=== PATIENT | female | born 1955 | race Caucasian/White ===

== ENCOUNTER 2017-12-09 20:37 | Emergency (ER) | payer OTHER ==
[~2017-12-09] VITALS: Ht 162.6 cm; Wt 95.5 kg
[~2017-12-09 20:37] MED LIST: HUMALOG100 U/ML SC; LANTUS100 U/ML; LOTREL; METFORMIN500 MG PO; NORCO 325 MG-51 TAB PO; PHENERGAN 25 TA25 MG PO; TIAZAC120 MG PO; [UNRECOGNIZED DRUG - OTHER] PO
[2017-12-09 20:39] VITALS: TEMP 99
[2017-12-09] MEDS ORDERED: PREDNISONE20 MG PO (22:19)
[2017-12-09 22:30] VITALS: BP 134/78; PULSE 70
== END 2017-12-09 22:33 | disposition home or self-care (01) ==
LOC: COL.ER 20:37
DX: T78.3XXA Angioneurotic edema, initial encounter (principal); E11.9 Type 2 diabetes mellitus without complications; I10 Essential (primary) hypertension; Z79.4 Long term (current) use of insulin
CPT/HCPCS: J1100; J1200

== ENCOUNTER 2019-08-13 18:37 | Inpatient (IN) | payer MEDICARE, OTHER ==
[~2019-08-13] VITALS: Ht 157.5 cm; Wt 98.9 kg
[~2019-08-13 18:37] MED LIST changes: +AMILORIDE/HCTZ1 TAB PO; +GLUCOPHAGE500 MG/TAB PO; -METFORMIN500 MG PO; +PREDNISONE20 MG PO; -[UNRECOGNIZED DRUG - OTHER] PO
[2019-08-13 20:02] LABS: BASO # 0.1 (0.0-0.2); BASO % 0.2 % (0.0-2.0); EOS # 0.1 (0.0-0.7); EOS % 0.3 % (0-4.0); GRAN # 17.5 (1.4-6.5); GRAN % 86.7 % (42.2-75.2); HEMOGLOBIN 12.3 g/dl (12.5-16.0); LYMPH # 1.6 (1.2-3.4); LYMPH % 7.8 % (20.0-51.0); MEAN CELL VOLUME 89 fl (80.0-100.0); MEAN CORPUSCULAR HEMOGLOBIN 30 pg (27.0-31.0); MEAN CORPUSCULAR HGB CONC 33 g/dl (33.0-37.0); MEAN PLATELET VOLUME 10.7 fl (7.4-10.4); MONO # 0.9 (0.1-0.6); MONO % 4.4 % (1.7-9.3); PLATELET COUNT 325 K/mm3 (130-400); RED BLOOD COUNT 4.14 M/mm3 (4.10-5.30); REDCELL DISTRIBUTION WIDTH-CV 15.9 % (11.5-14.5)
[2019-08-13 20:16] LABS: ALBUMIN 4.7 gm/dL (3.5-5.0); BILIRUBIN,TOTAL 3.6 mg/dL (0.0-1.0); C-REACTIVE PROTEIN 0.7 mg/dL (0.0-0.9); CALCIUM 9.6 mg/dL (8.4-10.2); CREATININE, serum 1.18 (0.52-1.25); POTASSIUM 3.7 mmol/L (3.4-5.0); TOTAL PROTEIN 8.2 gm/dL (6.4-8.2)
[2019-08-13 20:19] LABS: HEMATOCRIT 36.8 % (37.0-47.0)
[2019-08-13 22:56] LABS: COLLECTION METHOD CLEAN CATCH
[2019-08-13 23:03] LABS: MUCOUS Present /lpf; PH 5 (5-8); SQUAMOUS EPITHELIAL 0-2 /hpf; URINE APPEARANCE Clear; URINE BACTERIA None Seen /hpf; URINE BILIRUBIN Negative (NEGATIVE); URINE BLOOD 1+ (NEGATIVE); URINE COLOR Yellow; URINE GLUCOSE Negative (NEGATIVE); URINE KETONE Negative (NEGATIVE); URINE LEUKOCYTE ESTERASE Negative (NEGATIVE); URINE NITRATE Negative (NEGATIVE); URINE PROTEIN(semi-quant) Negative (NEGATIVE); URINE RBC 0-2 /hpf; URINE UROBILINOGEN Negative (NEGATIVE)
--- NOTE | 2019-08-13 23:45 | NUR ---
PT ADMITTED TO ROOM 347 FROM ER PER W/C. A&O X4. DOZING AT TIMES. NO RESP DISTRESS. REVIEWED PLAN OF CARE.
[2019-08-13 23:50] VITALS: BP 121/64; PULSE 69; TEMP 98.5
[2019-08-14] MEDS ORDERED: LASIX 20MG TABL20 MG PO (00:25)
[2019-08-14] MEDS ORDERED: CRESTOR5 MG PO (00:26)
[2019-08-14] MEDS ORDERED: LOTREL 5/20 CAP1 CAP PO (00:29)
[2019-08-14 04:00] VITALS: BP 134/66; PULSE 73; TEMP 98.3
--- NOTE | 2019-08-14 06:07 | NUR ---
SEE MAR FOR PAIN & NAUSEA MED GIVEN. PT REPORTS HAS MILD HEADACHE WITH MS. PT REPORTS NAUSEA WITH ACTIVITY.
--- NOTE | 2019-08-14 07:00 | NUR ---
Report received from JIMMIE Meek. PT in bed resting, denies needs, will continue to monitor.
[2019-08-14 07:52] VITALS: BP 143/82; PULSE 148; TEMP 98.4
[2019-08-14 07:55] LABS: HEMATOCRIT 32.2 % (37.0-47.0); HEMOGLOBIN 10.5 g/dl (12.5-16.0); MEAN CELL VOLUME 90 fl (80.0-100.0); MEAN CORPUSCULAR HEMOGLOBIN 29 pg (27.0-31.0); MEAN CORPUSCULAR HGB CONC 33 g/dl (33.0-37.0); MEAN PLATELET VOLUME 10.5 fl (7.4-10.4); PLATELET COUNT 205 K/mm3 (130-400); RED BLOOD COUNT 3.57 M/mm3 (4.10-5.30); REDCELL DISTRIBUTION WIDTH-CV 15.9 % (11.5-14.5)
[2019-08-14] MEDS ORDERED: GLUCOPHAGE500 MG/TAB PO (07:58)
[2019-08-14 08:04] VITALS: BP 131/64; PULSE 78
[2019-08-14 08:06] LABS: ALBUMIN 3.9 gm/dL (3.5-5.0); BILIRUBIN,TOTAL 0.8 mg/dL (0.0-1.0); CALCIUM 8.7 mg/dL (8.4-10.2); CREATININE, serum 0.9 (0.52-1.25); POTASSIUM 3.8 mmol/L (3.4-5.0); TOTAL PROTEIN 6.8 gm/dL (6.4-8.2)
--- NOTE | 2019-08-14 08:53 | NUR ---
Assessment charted. Pt in bed resting, called earlier for EKG after DATA INPUT CLERK found heart rate to be in 140's, order received from Kandy for EKG but tachycardia resolved within a few minutes, per patient this is a chronic issue for her. Pt denies needs, pain is not bad at rest but when moving is 7/10, discussed pain managment with Kandy and new pain medication received. Will continue monitor.
[2019-08-14] MEDS ORDERED: OMEGA-3 1000 MG1 CAP PO (09:07)
--- NOTE | 2019-08-14 09:43 | NUR ---
Skin Tanner met with patient to discuss discharge planning. Patient lives in [place] with her , Crispin (ph#[phone]) and plans to return home upon discharge. Patient sees Dr. Hi Gomez for primary care and has no issues obtaining medications from the [facility] pharmacy on [address]. Patient reports independence with ADL's and has no additional concerns at this time. Patient does not have Advance Directives in place but was interested in obtaining forms for DPOA-HC. SW provided.
[2019-08-14 12:05] VITALS: BP 136/63; PULSE 77; TEMP 98.5
--- NOTE | 2019-08-14 13:41 | NUR ---
Pt is in room with son. No complaints at this time. Call light is within reach. Reported off to Primary RN Yariel.
[2019-08-14] MEDS ORDERED: HUMALOG100 U/ML SQ (14:17)
[2019-08-14] MEDS ORDERED: LANTUS100 U/ML SQ (14:18)
[2019-08-14 16:15] VITALS: BP 137/63; PULSE 80; TEMP 98.6
--- NOTE | 2019-08-14 18:38 | NUR ---
Pt family came to visit. pt ambulates to bathroom on her own.pt was up to shower. INT in left hand wrapped up with bag and iv fluid NS@100 stopped and capped off for pt to shower. pain level 4.5/10 and is moving down pt says. reprted off to JIMMIE Browne.
--- NOTE | 2019-08-14 18:45 | NUR ---
Report received from JIMMIE Browne. PT in bed resting after taking a shower. Doing well, denies needs, will continue to monitor.
--- NOTE | 2019-08-14 19:20 | NUR ---
REPORT GIVEN TO JIMMIE TIM.
[2019-08-14 19:24] VITALS: BP 138/55; PULSE 79; TEMP 99.5
--- NOTE | 2019-08-14 21:00 | NUR ---
Assessment charted. PT resting in bed, sleepy, spouse at bedside. Doing well, IVF to LFA. Anticipating am labs to determine plan of care. Denies needs, will continue to monitor.
[2019-08-15] VITALS: BP 147/74; PULSE 86; TEMP 98.1
[2019-08-15 03:55] VITALS: BP 98/70; PULSE 73; TEMP 99.1
--- NOTE | 2019-08-15 04:51 | NUR ---
PT has done well overnight, rested often, no PRN pain meds provided, will give bedside shift report to nightshift nurse who will resume care.
[2019-08-15 07:36] LABS: MEAN CELL VOLUME 91 fl (80.0-100.0); MEAN CORPUSCULAR HGB CONC 32 g/dl (33.0-37.0); MEAN PLATELET VOLUME 10.5 fl (7.4-10.4); PLATELET COUNT 159 K/mm3 (130-400); RED BLOOD COUNT 3.29 M/mm3 (4.10-5.30); REDCELL DISTRIBUTION WIDTH-CV 15.4 % (11.5-14.5)
[2019-08-15 07:47] VITALS: BP 156/61; PULSE 80; TEMP 98.6
[2019-08-15 07:47] LABS: ALBUMIN 3.5 gm/dL (3.5-5.0); BILIRUBIN,TOTAL 0.6 mg/dL (0.0-1.0); CALCIUM 8.6 mg/dL (8.4-10.2); CREATININE, serum 0.69 (0.52-1.25); POTASSIUM 3.7 mmol/L (3.4-5.0); TOTAL PROTEIN 6.3 gm/dL (6.4-8.2)
[2019-08-15 07:48] LABS: HEMOGLOBIN 9.7 g/dl (12.5-16.0); MEAN CORPUSCULAR HEMOGLOBIN 29 pg (27.0-31.0)
--- NOTE | 2019-08-15 09:30 | NUR ---
Patient alert and oriented, answers questions appropraitely. See assessment. Abdomen soft, non tender, non distended. Bowel sounds active x4 quads. +Flatus. No c/o pain or discomfort.
--- NOTE | 2019-08-15 10:23 | NUR ---
Family was present. I visited, listened, and provided spiritual care.
[2019-08-15 12:00] VITALS: BP 141/61; PULSE 75; TEMP 98.5
[2019-08-15 16:00] VITALS: BP 152/67; PULSE 77; TEMP 99.1
[2019-08-15 18:25] VITALS: BP 152/67; PULSE 77; TEMP 99.1
[2019-08-16] VITALS (12 sets, daily range): BP systolic 130–158; BP diastolic 55–80; PULSE 67–87; TEMP 97.9–98.8
--- NOTE | 2019-08-16 06:01 | NUR ---
RESTING QUIETLY, MOVING FROM BED TO CHAIR. PT HAS NOT WANTED ANY PAIN MEDS DURING THE NIGHT. NO N/V.
[2019-08-16 07:46] LABS: ALBUMIN 3.2 gm/dL (3.5-5.0); BILIRUBIN,TOTAL 0.5 mg/dL (0.0-1.0); CALCIUM 8.8 mg/dL (8.4-10.2); CREATININE, serum 0.66 (0.52-1.25); POTASSIUM 3.8 mmol/L (3.4-5.0); TOTAL PROTEIN 6.1 gm/dL (6.4-8.2)
--- NOTE | 2019-08-16 17:47 | NUR ---
Patient to OR at this time.
--- NOTE | 2019-08-16 20:10 | NUR ---
Patient returns from PACU per bed. Is alert, feeling nauseated at this time. IV to left hand without redness or swelling. O2 on at 2L/nc. Has 5 abdominal robotic sites with dry bandaids noted. Call light within reach.
--- NOTE | 2019-08-16 21:00 | NUR ---
PATIENT EATING TURKEY SANDWICH AND DRINKING TEA WITHOUT N/V. POST OP VSS.
--- NOTE | 2019-08-17 01:00 | NUR ---
REKHA'D IV SITE PER DR'S ORDER. TAKING FOOD AND FLUIDS WITHOUT PROBLEM.
--- NOTE | 2019-08-17 01:20 | NUR ---
LOWER ROBOTIC SITE LEAKING SEROUS FLUID. REMOVED BANDAID, APPLIED GAUZE DRSG AT THIS TIME. PATIENT UP IN CHAIR AT BEDSIDE FOR COMFORT.
[2019-08-17 04:43] VITALS: BP 143/62; PULSE 68; TEMP 97.4
--- NOTE | 2019-08-17 05:08 | NUR ---
Nauseated, medicated with Zofran 4mg IV now.
[2019-08-17 06:34] LABS: MEAN CELL VOLUME 91 fl (80.0-100.0); MEAN CORPUSCULAR HGB CONC 33 g/dl (33.0-37.0); MEAN PLATELET VOLUME 10.7 fl (7.4-10.4); PLATELET COUNT 195 K/mm3 (130-400); RED BLOOD COUNT 3.28 M/mm3 (4.10-5.30); REDCELL DISTRIBUTION WIDTH-CV 15.2 % (11.5-14.5)
[2019-08-17 06:44] LABS: HEMATOCRIT 29.7 % (37.0-47.0); HEMOGLOBIN 9.9 g/dl (12.5-16.0); MEAN CORPUSCULAR HEMOGLOBIN 30 pg (27.0-31.0)
--- NOTE | 2019-08-17 06:45 | NUR ---
awake and up in recliner, bedside shift report report received from JIMMIE Luis
[2019-08-17 06:49] LABS: ALBUMIN 3.6 gm/dL (3.5-5.0); BILIRUBIN,TOTAL 0.5 mg/dL (0.0-1.0); CALCIUM 8.9 mg/dL (8.4-10.2); CREATININE, serum 0.71 (0.52-1.25); POTASSIUM 4.2 mmol/L (3.4-5.0); TOTAL PROTEIN 6.6 gm/dL (6.4-8.2)
--- NOTE | 2019-08-17 06:55 | NUR ---
Sitting up in chair, no concerns offered at this time.
[2019-08-17 07:25] LABS: BAND 5 % (0-10); LYMPHOCYTE 7 % (20.0-51.0); NEUTROPHILS 88 % (42.0-75.2)
[2019-08-17 07:26] LABS: ANISOCYTOSIS 1+; HYPOCHROMIA 1+; PLATELET ESTIMATE NORMAL (NORMAL)
[2019-08-17 08:04] VITALS: BP 143/60; PULSE 50; TEMP 98.7
--- NOTE | 2019-08-17 08:20 | NUR ---
remains up in chair, full assessment completed, see interventions for further info, states she has not passed flatus since surgery but bowel sounds are present, encouraged to ambulate, states she is having soem nausea which is normal for her of a morning is why she wants to wait to ambulate
--- NOTE | 2019-08-17 09:12 | NUR ---
Dr Titus and care team in to see patient
--- NOTE | 2019-08-17 09:50 | NUR ---
resting in bed with lights off and TV on
[2019-08-17 11:16] VITALS: BP 150/58; PULSE 52; TEMP 97.9
--- NOTE | 2019-08-17 12:15 | NUR ---
sitting up in recliner eating lunch, denies needs
--- NOTE | 2019-08-17 13:15 | NUR ---
having drainage from lap site below umbulicus, covered with gauze and foam tape
--- NOTE | 2019-08-17 16:00 | NUR ---
discharge instruction given to patient and her , verbalizes understanding, discharged ambulatory
== END 2019-08-17 16:00 | disposition home or self-care (01) | DRG 418 ==
LOC: COL.ER 18:37 → SURG 21:44
PROVIDERS: Nurse Practitioner; Surgery; ADMIT Surgery
PROC: 8E0W4CZ Robotic Assisted Procedure of Trunk Region, Percutaneous Endoscopic Approach (ICD-10-PCS; 2019-08-16)
PROC: 0FT44ZZ Resection of Gallbladder, Percutaneous Endoscopic Approach (ICD-10-PCS; principal; 2019-08-16 17:00)
DX: K85.10 Biliary acute pancreatitis without necrosis or infection (principal); E87.2 Acidosis; K80.12 Calculus of gallbladder with acute and chronic cholecystitis without obstruction; I10 Essential (primary) hypertension; E11.9 Type 2 diabetes mellitus without complications; E66.9 Obesity, unspecified; Z79.4 Long term (current) use of insulin; Z68.39 Body mass index [BMI] 39.0-39.9, adult
CPT/HCPCS: 99223; 99232-AI; A4216; J0690; J1100; J1170; J1650; J1815; J1885; J1956; J2270; J2405; J2704; J2765; J7030; Q9967

== ENCOUNTER 2022-02-02 09:33 | Emergency (ER) | payer OTHER ==
[~2022-02-02] VITALS: Ht 162.6 cm; Wt 90.9 kg
[~2022-02-02 09:33] MED LIST changes: +CRESTOR5 MG PO; +HUMALOG100 U/ML SQ; +LANTUS100 U/ML SQ; +LASIX 20MG TABL20 MG PO; +LOTREL 5/20 CAP1 CAP PO; +OMEGA-3 1000 MG1 CAP PO
[2022-02-02 09:47] VITALS: TEMP 97.9
[2022-02-02 10:10] LABS: BASO % 0.7 % (0.0-2.0); EOS # 0.1 K/mm3 (0.0-0.7); EOS % 1.3 % (0.0-4.0); GRAN # 4.3 K/mm3 (1.4-6.5); GRAN % 70.8 % (42.2-75.2); HEMOGLOBIN 11.8 g/dl (12.5-16.0); LYMPH # 1.2 K/mm3 (1.2-3.4); LYMPH % 20.4 % (20.0-51.0); MEAN CELL VOLUME 88 fl (80.0-100.0); MEAN CORPUSCULAR HEMOGLOBIN 30 pg (27-31); MEAN CORPUSCULAR HGB CONC 34 g/dl (33.0-37.0); MEAN PLATELET VOLUME 10.8 fl (7.4-10.4); MONO # 0.4 K/mm3 (0.1-0.6); MONO % 6.3 % (1.7-9.3); PLATELET COUNT 231 K/mm3 (130-400); REDCELL DISTRIBUTION WIDTH-CV 15.9 % (11.5-14.5)
[2022-02-02 10:17] LABS: HEMATOCRIT 35.1 % (37.0-47.0)
[2022-02-02 10:19] LABS: INR 1.1 (0.8-3.0); PROTHROMBIN TIME 11.9 SECONDS (9.7-12.8)
[2022-02-02 10:21] LABS: PARTIAL THROMBOPLASTIN TIME 46.3 SECONDS (26.0-37.0)
[2022-02-02 10:22] LABS: BILIRUBIN,TOTAL 0.7 mg/dL (0.2-1.2); CALCIUM 9.5 mg/dL (8.4-10.2); CREATININE, serum 1.38 mg/dL (0.57-1.11); POTASSIUM 4.2 mmol/L (3.5-4.5); TOTAL PROTEIN 7.5 gm/dL (6.2-8.1)
[2022-02-02 10:28] LABS: TROPONIN-I 0.013 ng/mL (0.00-0.033)
[2022-02-02] MEDS ORDERED: CRESTOR 10MG10 MG PO (10:34)
[2022-02-02] MEDS ORDERED: TOPROL XL 50MG50 MG PO (10:40)
[2022-02-02] MEDS ORDERED: ASPIRIN 32325 MG/TA1 PO (10:40)
[2022-02-02] MEDS ORDERED: VOLTAREN GEL 1%1 TU TP (10:43)
[2022-02-02] MEDS ORDERED: ELIQUIS 5MG PO (13:28)
[2022-02-02] MEDS ORDERED: CARDIZEM CD 30300 MG PO (13:30)
[2022-02-02 14:32] VITALS: BP 105/79; PULSE 89
== END 2022-02-02 14:41 | disposition home or self-care (01) ==
LOC: COL.ER 09:33
PROVIDERS: Family Medicine
DX: I48.20 Chronic atrial fibrillation, unspecified (principal); Z86.16 Personal history of COVID-19
CPT/HCPCS: J1160; J1644; J7030

== ENCOUNTER 2024-06-17 14:01 | Emergency (ER) | payer MEDICARE ==
[~2024-06-17] VITALS: Ht 157.5 cm; Wt 100.0 kg
[~2024-06-17 14:01] MED LIST changes: +ASPIRIN 32325 MG/TA1 PO; +CARDIZEM CD 30300 MG PO; +CRESTOR 10MG10 MG PO; +ELIQUIS 5MG PO; +TOPROL XL 50MG50 MG PO; +VOLTAREN GEL 1%1 TU TP
[2024-06-17 14:56] LABS: BASO % 0.4 % (0.0-2.0); EOS # 0.1 K/mm3 (0.0-0.7); EOS % 1.1 % (0.0-4.0); GRAN # 4.9 K/mm3 (1.4-6.5); GRAN % 67.9 % (42.2-75.2); HEMATOCRIT 36.2 % (37.0-47.0); LYMPH # 1.7 K/mm3 (1.2-3.4); LYMPH % 24.1 % (20.0-51.0); MEAN CELL VOLUME 92 fl (80.0-100.0); MEAN CORPUSCULAR HEMOGLOBIN 31 pg (27-31); MEAN CORPUSCULAR HGB CONC 33 g/dl (33.0-37.0); MEAN PLATELET VOLUME 10.5 fl (7.4-10.4); MONO # 0.4 K/mm3 (0.1-0.6); MONO % 5.7 % (1.7-9.3); PLATELET COUNT 259 K/mm3 (130-400); RED BLOOD COUNT 3.94 M/mm3 (4.10-5.30); REDCELL DISTRIBUTION WIDTH-CV 16.1 % (11.5-14.5)
[2024-06-17 15:07] LABS: ALANINE AMINOTRANSFERASE 39 U/L (0-55); ALBUMIN 4.3 g/dL (3.4-4.8); ALKALINE PHOSPHATASE 89 U/L (40-150); ANION GAP 13 mmol/L (7-16); AST,SGOT 26 U/L (5-34); BILIRUBIN,TOTAL 0.6 mg/dL (0.2-1.2); BLOOD UREA NITROGEN 27 mg/dL (10-20); CALCIUM 10.3 mg/dL (8.4-10.2); CHLORIDE 104 mEq/L (98-107); CREATININE, serum 1.55 mg/dL (0.57-1.11); GLUCOSE 120 mg/dL (70-99); POTASSIUM 3.9 mEq/L (3.5-4.5); SODIUM 139 mEq/L (136-145); TOTAL PROTEIN 8.1 g/dl (6.2-8.1)
[2024-06-17 15:16] LABS: TROPONIN-I < 0.010 ng/mL (0.00-0.033)
[2024-06-17] MEDS ORDERED: AFRIN 15 ML15 ML NS (16:48)
[2024-06-17 16:56] VITALS: BP 112/71; PULSE 93
== END 2024-06-17 17:07 | disposition home or self-care (01) ==
LOC: COL.ER 14:01
PROVIDERS: Emergency Medicine
DX: R06.02 Shortness of breath (principal)